=== PATIENT | male | born 1970 | race Caucasian/White ===

== ENCOUNTER → 2022-11-09 10:40 | Outpatient (CLI) | payer OTHER, SELFPAY ==
--- NOTE | ~2022-11-09 | CT_ITS ---
Non-contrast CT scan of the Pelvis Clinical indication: Right inguinal hernia Technique: 2.5 mm axial scans were obtained through the pelvis without intravenous or oral contrast. Dose reduction technique was used on this scan by utilizing automated exposure control and iterative reconstruction technique. The dose-length product (DLP) was 665.36 mGy-cm. Findings: Visualized bowel loops are unremarkable. No ascites. There are small bilateral fat-containi ng inguinal hernias, right larger than left. Urinary bladder unremarkable. Prostate gland and seminal vesicles are unremarkable. Impression: Small bilateral fat-containing inguinal hernias, right greater than left. Reviewed, dictated and finalized at location [facility]. [facility] Impression: Small bilateral fat-containing inguinal hernias, right greater than left.
== END ==
PROVIDERS: PCP Family Medicine; Visit Provider Family Medicine
DX: K40.20 Bilateral inguinal hernia, without obstruction or gangrene, not specified as recurrent (principal)
CPT/HCPCS: 72192

== ENCOUNTER 2023-01-08 01:33 | Day surgery (SDC) | payer OTHER, SELFPAY ==
[2023-01-03 13:31] VITALS: BMI 36.2
--- NOTE | 2023-01-03 13:37 | PC.NURSE ---
Report to the Outpatient Waiting Room, entrance under the green pavilion located off [facility], at time 1030 on date 01/08/23. Planned Procedure Time: 1230. Time changes happen often and if your time is changed the preop area will call you the afternoon before. - You and your visitor will be asked to self-screen and do not enter if you have any COVID symptoms. - A mask is optional within the hospital at this time. Patients may have clear liquids (water, carbonated beverages, clear teas, apple juice) until 3 hours prior to surgery with a maximum of 20 ounces. - No food from midnight until time of surgery Take the following medications with a SIP of water the morning of surgery: NONE DO NOT STOP ANY OF YOUR OTHER PRESCRIPTION MEDICATIONS PRIOR TO SURGERY?EXCEPT THE FOLLOWING Medications to discontinue per physician: VITAMINS Date to take last dose: 01/04/23 Please no make-up, nail [place] citizen, hairspray, perfume, deodorant, or body powder the day of surgery. No jewelry (including any body piercings) or valuables the day of surgery, leave them at home. Please take a shower or bath the night before, or the morning of, surgery with an antibacterial soap (HIBICLENS). Wear comfortable, loose fitting clothing. - Jewelry must be removed prior to entering the operating room. Rings and piercings that are not removed may be cut off. - The hospital will not accept responsibility for valuables. - Please leave all valuables, including medications, at home the day of surgery. If you are going home after surgery, a licensed concrete mixing truck driver must drive you home. - NO public transportation without another adult if you receive anesthesia. - We recommend that an adult stay with you for 24 hours following discharge. - We also recommend that you do not drive, make important decision, drink alcoholic beverages, or take any drugs that were not prescribed by your health care provider for at least 24 hours after your discharge time. Follow any additional instructions given to you from your surgeon. If you or anyone in your household have experienced Covid symptoms in the past week, please notify your surgeon or the nurse liaison at the phone number below for possible testing. Telephone instructions given to PT - DAR CRAWFORD and asked if any additional questions and then verbalized understanding. Patient advised to call surgeon office or pre surgery nurse liaison [phone] if any additional questions.
--- NOTE | 2023-01-07 14:38 | WPDANESEPPF ---
Anes - Initial Pre Proc Eval Procedure: Operation Date: 01/08/23 12:30 Proposed Procedures p Laparoscopic Bilateral Inguinal Hernia Repair with Mesh, Davinci Assisted - Rufus Galeano DO Date/Time: 01/07/23 14:38 Surgeon: Rufus Galeano DO Pre Op Diagnosis: bilateral Inguinal Hernia Patient Data Age: 52 Gender: M Height: 1.73 m Weight: 108.2 kg Allergies Allergy/AdvReac Type Severity Reaction Status Date / Time meperidine Allergy Mild DRED Verified 01/08/23 10:40 propoxyphene Allergy Mild BAD FEELING Verified 01/08/23 10:40 Home Medications Medication Instructions Recorded Confirmed Type omega 1-ocj-kvg-fish oil 1,000 mg 1 cap PO DAILY 11/21/22 01/03/23 History (120 mg-180 mg) capsule (Fish Oil) sildenafil 100 mg tablet 100 mg PO DAILY PRN Erectile 11/21/22 01/03/23 History Dysfunction cholecalciferol (vitamin D3) 125 125 mcg PO DAILY 01/03/23 01/03/23 History mcg (5,000 unit) tablet (Vitamin D3) Patient hx anesthesia problems: none Family hx anesthesia problems: none Results Review: All pre-operative results and documents have been reviewed as part of the pre-operative evaluation. FORMERLY [facility], [facility] Past Medical History Medical History (Updated 01/07/23 @ 14:38 by Ruperto Dyer MD) SAEED (obstructive sleep apnea) Osteoarthritis Surgical History Surgical History History of partial thyroidectomy 2017 Family History Family History Father Lung cancer Hypertension Mother Kidney disease Social History Social History Smoking packs per day: 1 Smoking cigarettes per day: 20.0 Years smoked: 12 Smoking pack-years: 12.00 Smoking status: Former smoker Tobacco type: cigarettes Smoking end date: 09/02/02 Alcohol intake: current Drinks per week: 4 Alcohol use details: socially Substance use: never Substance use type: does not use Living arrangements: with family Occupation/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 care concerns: No Anes - Eval Final PreProcedure Day of Procedure 01/07/23 14:38 Patient weight: obese Heart: regular rate and rhythm Lungs: clear to auscultation and normal air movement Airway: Mallampati scale class II Neurological: alert and oriented Last oral intake: >/= 8 hours ASA classification: II Emergent: no Anesthetic plan: proceed Anesthesia type and monitoring: general ETT Results Review: All pre-operative results and documents have been reviewed as part of the pre-operative evaluation. Informed Consent: The patient's anesthetic plan and its attendant risks and benefits were discussed with the patient/family/POA. Questions were solicited and answers provided to the satisfaction of the patient/family/POA.
[2023-01-08] VITALS (10 sets, daily range): BP systolic 127–143; BP diastolic 73–91; PULSE 57–75; RESP 12–18; TEMP 36.2–36.4; O2SAT 96–100
[2023-01-08] MEDS: ACETAMINOPHEN 500 MG TABLET 1000 MG PO (10:44)
[2023-01-08] MEDS: LACTATED RINGERS 1,000 ML 30 ML IV CONT ×2 (11:25→14:44)
[2023-01-08] MEDS: KETOROLAC 15 MG/ML VIAL (*BKC) IV PUSH (11:40)
--- NOTE | 2023-01-08 12:24 | PM.IMHP ---
H&P: HPI History of Present Illness Date/Time: 01/08/23 12:24 Chief Complaint: Bilateral inguinal hernia Narrative: This is a 52-year-old man who presents for bilateral inguinal hernia repair. He denies any significant changes since last seen in the office. Review of Systems Review of Systems: All systems reviewed & are unremarkable except as noted in HPI and below Constitutional: Constitutional: Denies chills, Denies fever(s), Denies headache(s) and Denies weight loss Eyes: Eyes: Denies change in vision ENT: Denies dizziness, Denies headache(s), Denies neck mass and Denies throat swelling Cardiovascular: Cardiovascular: Denies chest pain, Denies lightheadedness and Denies dyspnea Respiratory: Respiratory: Denies cough, Denies dyspnea and Denies wheezing Gastrointestinal: Gastrointestinal: Denies abdominal pain, Denies change in bowel habits, Denies nausea and Denies vomiting Genitourinary: Genitourinary: Denies hematuria and Denies dysuria Musculoskeletal: Musculoskeletal: Reports as per HPI Integumentary/Breasts: Skin/Breast: Reports as per HPI Neurologic: Denies dizziness and Denies headache(s) Allergic/Immunologic: Allergic/Immunologic: Denies throat swelling and Denies wheezing PMF Past Medical History Medical History (Updated 01/07/23 @ 14:38 by Ruperto Dyer MD) SAEED (obstructive sleep apnea) Osteoarthritis Surgical History Surgical History History of partial thyroidectomy 2017 Family History Family History Father Lung cancer Hypertension Mother Kidney disease Social History Social History Smoking packs per day: 1 Smoking cigarettes per day: 20.0 Years smoked: 12 Smoking pack-years: 12.00 Smoking status: Former smoker Tobacco type: cigarettes Smoking end date: 09/02/02 Alcohol intake: current Drinks per week: 4 Alcohol use details: socially Substance use: never Substance use type: does not use Living arrangements: with family Occupation/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 care concerns: No Meds Home Medications and Allergies Home Medications Medication Instructions Recorded Confirmed Type omega 1-kjb-lsg-fish oil 1,000 mg 1 cap PO DAILY 11/21/22 01/03/23 History (120 mg-180 mg) capsule (Fish Oil) sildenafil 100 mg tablet 100 mg PO DAILY PRN Erectile 11/21/22 01/03/23 History Dysfunction cholecalciferol (vitamin D3) 125 125 mcg PO DAILY 01/03/23 01/03/23 History mcg (5,000 unit) tablet (Vitamin D3) Allergies Allergy/AdvReac Type Severity Reaction Status Date / Time meperidine Allergy Mild DRED Verified 01/08/23 10:40 propoxyphene Allergy Mild BAD FEELING Verified 01/08/23 10:40 Exam Const: General: no acute distress and alert Orientation/consciousness: patient oriented x3 HENMT: Head: normocephalic and atraumatic Ears: hearing grossly normal bilaterally Face/Nose/Sinus: Normal nares present Mouth: Yes Normal oral and palatal mucosa present Eyes: Periorbital: periorbital findings normal Sclera: sclerae normal EOM: EOMs intact bilaterally Neck: Neck: normal visual inspection, no lymphadenopathy and trachea midline Chest: Chest palpation & inspection: normal inspection of the chest Resp: Effort & Inspection: normal respiratory effort Auscultation: clear to auscultation bilaterally Cardio: Jugular venous distension: no JVD Rate: regular rate Rhythm: regular rhythm Heart sounds: S1 normal heart sound present and S2 normal heart sound present Peripheral pulses: Peripheral pulses 2+ throughout GI: Inspection: normal to inspection GI Palp: Yes Soft to palpation, No Tenderness to palpation present (GI), No Guarding due to palpation present (GI) and No Rebound tenderness present Percussio
--- NOTE | 2023-01-08 12:25 | WPDHPUPDATE1 ---
History and Physical Update Update Date/Time: 01/08/23 12:25 History and Physical has been reviewed, including an updated exam of the patient. There are NO changes in the patient's condition. Risks, benefits, and alternatives have been discussed and questions answered. Patient agrees to proceed with procedure.
[2023-01-08] MEDS: ceFAZolin 2 GM/D5W 50 ML 2 GM/50 ML BAG IVPB (12:49)
[2023-01-08] MEDS: BUPIVACAINE/EPINEPHRINE 0.5% 50 ML VIAL INFILTRATE (13:24)
--- NOTE | 2023-01-08 14:23 | W.PM.PROC2 ---
Procedure Note - Detailed Date of Procedure 01/08/23 Pre-op Diagnosis bilateral Inguinal Hernia Post-op Diagnosis Same (Bilateral indirect inguinal hernia) Procedure Performed Laparoscopic bilateral inguinal hernia repair with mesh, da [place] assisted Surgeon Rufus Galeano DO Anesthesia General and Local (0.5% bupivacaine with epinephrine) Indications This is a 52-year-old man who presented with bilateral groin pain that started about 2-3 months ago. He 1st noticed this a little worse on the right side. He was seen by his PCP and a CT was ordered which showed evidence of bilateral fat containing inguinal hernias. Discussions made with the patient about treatment options and decision was made to proceed with robotic assisted laparoscopic bilateral inguinal hernia repair with mesh. Findings Laparoscopic bilateral inguinal hernia repair was performed. The patient was found to have small bilateral indirect inguinal hernias. A robotic transabdominal preperitoneal approach was utilized for repair. Once a wide enough preperitoneal pocket was created and the hernia sacs were reduced, I then placed a large 3DMax mid mesh overlying each myopectineal orifice. No specimens were obtained for pathology. Description of Procedure Procedure as well as risks, benefits, and alternatives were discussed with the patient. Written consent was obtained and placed in chart prior to procedure. Patient was brought back to surgical suite. He was placed supine on operating table. Time-out was done to confirm patient and procedure. He was then intubated by Anesthesia Department. His abdomen was prepped and draped in sterile fashion using chlorhexidine prep. 0.5% bupivacaine with epinephrine was infiltrated at each location for incision. An 8 mm incision was made in the left lateral abdomen, and a 5 mm Optiview trocar was advanced through the abdominal layers under direct visualization. Once inside the abdominal cavity, carbon dioxide insufflation was used to create a pneumoperitoneum. A camera was inserted and the abdominal cavity was inspected. The patient was placed in slight Trendelenburg position. An 8 millimeter incision was made on the right lateral abdomen and an 8 millimeter trocar was inserted under direct visualization. Another 8 millimeter incision was made just superior to the umbilicus and an 8 millimeter trocar was inserted under direct visualization. The 5 mm port was then removed and this was replaced with another 8 mm robotic port. The robotic arms were brought up to the patient's bedside and secured to the ports. The camera and instruments were inserted. I then moved over to the robotic console and took control of the camera and instruments. After careful inspection of the abdominal cavity, I began scoring the peritoneum along the right lower quadrant using scissors with electrocautery. The preperitoneal plane was entered and this was carefully dissected caudally along the inferior epigastric vessels. Careful dissection with scissors with electrocautery and blunt dissection was used to continue this dissection. I dissected far enough laterally to allow for mesh placement, and also dissected medially to identify the pubic arch and Chris's ligament. The hernia sac was identified and carefully dissected posteriorly. The cord contents were also identified and the peritoneum was carefully dissected far enough posteriorly to allow for mesh placement. Once an adequate pocket was created, I then placed the mesh within the preperitoneal pocket and carefully unfolded it. The mesh was centered on the hernia defect with adequate overlap circumferentially. The inferior edge of the mesh was inspected to ensure that it was far enough away from the peritoneal edge. The mesh appeared in proper position overlying the entire myopectineal orifice. The mesh was secured using 3-0 Vicryl simple interrupted sutures in Chris's ligament, the superior medial edge, and superior
[2023-01-08] MEDS: fentaNYL CITRATE INJ (*CRX) 100 MCG/2 ML VIAL 25 MCG IV PUSH ×6 (15:00→15:20)
[2023-01-08] MEDS: oxyCODONE HCL (*CRX) 5 MG TAB IR PO (16:47)
--- NOTE | 2023-01-08 18:14 | SUR.PHASEII ---
@1235 Dr. Galeano notified that patient's pharmacy is closing and pain script needs resent to late night pharmacy. @[id number] Dr. Galeano notified that patient is discharging from outpatient area and will need script sent to different pharmacy that closes at 7pm.
== END 2023-01-08 17:50 | disposition home or self-care (01) ==
PROVIDERS: PCP Family Medicine; Visit Provider Surgery
PROC: 8E0Y4CZ Robotic Assisted Procedure of Lower Extremity, Percutaneous Endoscopic Approach (ICD-10-PCS; CPT 49650; principal; 2023-01-08 12:30)
DX: K40.20 Bilateral inguinal hernia, without obstruction or gangrene, not specified as recurrent (principal); G47.33 Obstructive sleep apnea (adult) (pediatric); Z87.891 Personal history of nicotine dependence; E66.9 Obesity, unspecified; Z68.36 Body mass index [BMI] 36.0-36.9, adult
CPT/HCPCS: 49650; S2900; 36415; 86850; 86900; 86901; A9270; C1781; J0690; J1100; J1170; J1885; J2250; J2370; J2405; J2704; J2710; J3010; J7120